=== PATIENT | female | born 1985 | race Caucasian/White ===

== ENCOUNTER 2017-04-20 13:48 | Emergency (ER) | payer OTHER ==
[~2017-04-20] VITALS: Ht 152.4 cm; Wt 57.3 kg
[2017-04-20 15:56] VITALS: BP 110/65
== END 2017-04-20 15:57 | disposition home or self-care (01) ==
LOC: EME 13:48
DX: S63.501A Unspecified sprain of right wrist, initial encounter (principal); V49.40XA Driver injured in collision with unspecified motor vehicles in traffic accident, initial encounter; Z86.718 Personal history of other venous thrombosis and embolism; Z79.01 Long term (current) use of anticoagulants
CPT/HCPCS: 70450; 73110; 73130; 99281; 99284